=== PATIENT | female | born 1970 | race Caucasian/White ===

== ENCOUNTER → 2017-04-04 | Outpatient (CLI) | payer OTHER ==
[~2017-04-04] MED LIST: APAP/HYDROCODON1 TA9 PO; B12 INJ.,1000 MCG/M IM; CELECOXIB200 MG PO; CIPRO 500MG TA500 MG PO; FLAGYL500 MG PO; FLEXERIL10 MG PO; NORCO 325 MG-101 TAB PO; NORCO 325 MG-51 TAB PO; OMEPRAZOLE20 MG PO; OMEPRAZOLE40 MG PO; PHENERGAN 25MG.25 M1 PO; PREDNISONE 20MG20 MG PO; PROMETHAZINE D473 ML PO; ZOFRAN ODT4 MG PO
[2017-04-04 22:10] LABS: AMPHETAMINES/METAMPHETAMINES NEGATIVE ng/mL (<1000)
== END ==
LOC: LAB 17:17
PROVIDERS: Physician Assistant
DX: Z79.899 Other long term (current) drug therapy (principal)